=== PATIENT | male | born 1965 | race Caucasian/White ===

== ENCOUNTER 2020-08-23 08:22 | Outpatient (REF) | payer OTHER, SELFPAY ==
--- NOTE | 2020-08-23 16:48 | MHC.AU.P13 ---
Adult Audiological Evaluation Date of Visit: 08/23/20 Reason for Appointment: Audiological re-evaluation due to concern for decreased hearing. Mr. Cruz has a known bilateral, high-frequency, sensorineural hearing loss and uses binaural hearing aids. He feels that his hearing is getting worse and he's asking for more repetition. Previous Hearing Test Results: [facility] [place]- mild sloping to moderately severe high-frequency sensorineural hearing loss bilaterally. 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, 17 yrs Medical History: Medical History: Change in medical history: borderline diabetic Medication List: New medication: Jardiance Hearing Instrument History- Right Ear: [employer] Programs: [employer] Model: [employer]0-M Candescent HealingE Serial Number: [id number] Battery Size: 312 Warranty: 04/10/2019 Dispensed By: [facility] Date of Fittin01/16/2016 Hearing Instrument History- Left Ear: Director [employer] Programs: [employer] Model: [employer]-M Candescent HealingE Serial Number: [id number] Battery Size: 312 Warranty: 04/10/2019 Dispensed By: [facility] Date of Fittin01/16/2016 Otoscopy: Right Ear: Unremarkable Left Ear: Unremarkable Tympanometry: Right Ear: Reduced Middle Ear Compliance (Type As) Left Ear: Reduced Middle Ear Compliance (Type As) Hearing Evaluation: Transducer(s) Used: Insert Earphones Method: Conventional Audiometry Stimuli Used: Pure Tones Right Ear: Description of Hearing: Normal hearing from 250-1000 Hz, sloping to a mild to moderately severe sensorineural hearing loss from 3697-6620 Hz. Left Ear: Description of Hearing: Normal hearing from 250-1000 Hz, sloping to a mild to moderately severe sensorineural hearing loss from 4854-3958 Hz. Speech Recognition Threshold (SRT): Method Used: Monitored Live Voice Stimuli Used: Spondee Words Right Ear: 20 dBHL Left Ear: 20 dBHL Word Discrimination: Method: Recorded Lists Word Lists Used: NU-6 Right Ear: 88% at 70 dBHL Left Ear: 96% at 70 dBHL Comparison: Compared to most recent evaluation: 5-10 dBHL decrease in high-frequency thresholds bilaterally. Recommendations: Recommendations: Audiological re-evaluation in one year. Hearing aid(s) reprogrammed with updated test results. Recommendations (Other): Hearing aid maintenance recommended in 6 months. Diagnosis: Primary Diagnosis: H90.3 Bilateral Sensorineural Hearing Loss Secondary Diagnosis: H93.13 Tinnitus, Bilateral Services Performed: Services Performed: Comprehensive Audiological Evaluation (CPT 19248) Tympanometry (CPT 32741) Signature: Provider: Mike Fountain, CCC-A
== END 2020-08-23 08:23 | disposition home or self-care (01) ==
LOC: HO.SH 08:22
PROVIDERS: Visit Provider Internal Medicine
DX: H90.3 Sensorineural hearing loss, bilateral (principal); H93.13 Tinnitus, bilateral
CPT/HCPCS: 92557; 92567

== ENCOUNTER 2021-09-25 13:37 | Outpatient (REF) | payer OTHER, SELFPAY ==
--- NOTE | 2021-09-25 16:34 | MHC.AU.AHA ---
Adult Audiological Evaluation Date of Visit: 09/25/21 Reason for Appointment: Mr. Cruz was seen today for an audiological re-evaluation due to concerns of decreased speech understanding abilities. He has a known bilateral, sensorineural hearing loss and uses hearing aids binaurally. Mr. Cruz notes decreased clarity, especially with the use of masks. 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 Previous Hearing Test Results: [facility] [place]-08/23/2020-- normal hearing through 1000 Hz, sloping to a moderately severe sensorineural hearing loss bilaterally. 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 Patient received a hip replacement surgery in March of 2021, which resulted in a pulmonary embolism in April of 2021 that was treated with anticoagulant medications. The patient was recently diagnosed with two pulmonary embolisms in his lungs, and two additional blood clots in his legs, which are currently being treated with medications. He is currently waiting on echocardiogram results. Patient also has sleep apnea, which is managed with a c-pap machine. Medication List: Jardiance, Eliquis, Vitamin D, Asprin Hearing Instrument History- Right Ear: Foot Orthopedist: [facility] Model: [employer]0-M [employer]ivix Serial Number: [id number] Battery Size: 312 Repair Warranty: 04/10/2019 Loss and Damage Warranty: 04/10/2019 Dispensed By: [facility] Date of Fittin01/16/2016 Hearing Instrument History- Left Ear: Foot Orthopedist: [facility] Model: [employer]0-M [employer]ix Serial Number: [id number] Battery Size: 312 Warranty: 04/10/2019 Loss and Damage Warranty: 04/10/2019 Dispensed By: [facility] Date of Fittin01/16/2016 Otoscopy: Right Ear: Partially occluded with cerumen Left Ear: Unremarkable Tympanometry: Tympanometry performed due to: Right Ear: Not performed at today's visit Left Ear: Not performed at today's visit Hearing Evaluation: Transducer(s) Used: Circumaural Headphones, Bone Conduction Method: Conventional Audiometry Stimuli Used: Pure Tones Right Ear: Description of Hearing: Normal hearing through 1000 Hz, sloping to a moderately severe sensorineural hearing loss through 8000 Hz. Left Ear: Description of Hearing: Normal hearing through 1000 Hz, sloping to a moderately severe sensorineural hearing loss through 8000 Hz. Speech Recognition Threshold (SRT): Method Used: Monitored Live Voice Stimuli Used: Spondee Words Right Ear: 25 dB HL Left Ear: 25 dB HL Word Discrimination: Method: Recorded Lists Word Lists Used: NU-6 Right Ear: 84% at 70 dB HL with 40 dB HL of masking Left Ear: 84% at 70 dB HL with 40 dB HL of masking QuickSIN: 1 dB SNR loss when presented binaurally at 70 dB HL, indicating normal speech in noise understanding abilities. Comparison: Compared to the most recent evaluation: Hearing is stable. Interpretation of Results: Hearing thresholds and word recognition have remained generally stable since previous evaluation in August 2020. Recommendations: Audiological re-evaluation in one year. Hearing protection should be used when around loud noise. Hearing aid maintenance performed today. Hearing aid(s) reprogrammed with updated test results. Consistent use of binaural amplification is recommended at this time. Patient's hearing aids were cleaned and reprogrammed to today's results. Patient reported good clarity and volume. Recommended the use of wax softener to help remove the partially occluding cerumen in the right ear without the use of manual cerumen removal. Return in one year or sooner with changes in hearing for a re-evaluation. Diagnosis: Primary Diagnosis: H90.3 Bilateral Sensorineural Hearing Loss Secondary Diagnosis: H93.13 Tinnitus, Bilateral Signature: Student/Clinical Fellow: Yes: Juanita Crump B.A., [employer] Coordinator I have reviewed/agreed with student/fellow documentation: N/A Provider: Mike Fountain, [facility]
== END 2021-09-25 13:38 | disposition home or self-care (01) ==
LOC: HO.SH 13:37
PROVIDERS: Visit Provider Internal Medicine
DX: Z01.118 Encounter for examination of ears and hearing with other abnormal findings (principal); H90.3 Sensorineural hearing loss, bilateral; H93.13 Tinnitus, bilateral
CPT/HCPCS: 92557; 92700

== ENCOUNTER 2022-12-24 14:27 | Outpatient (REF) | payer OTHER, SELFPAY | END 2022-12-24 14:28 | disposition home or self-care (01) | LOC: HO.SH 14:27 | PROVIDERS: Visit Provider Internal Medicine | DX: Z01.118 Encounter for examination of ears and hearing with other abnormal findings (principal); H90.3 Sensorineural hearing loss, bilateral | CPT/HCPCS: 92557; 92567; 92700 ==